=== PATIENT | male | born 1960 | race Caucasian/White ===

== ENCOUNTER 2018-04-18 11:44 | Emergency (ER) | payer BC ==
[2018-04-18 12:29] LABS: #Lymphocytes 1.6 thou/uL (1.20-3.40); #Monocytes 0.5 thou/uL (0.11-0.59); #Neutrophils 2.6 thou/uL (1.40-6.50); %Basophils 0.1 % (0.0-1.0); %Eosinophils 0.7 % (0.0-10.0); %Lymphocytes 34.1 % (21.0-51.0); %Monocytes 10.6 % (0.0-10.0); %Neutrophils 54.4 % (42.0-75.0); Hemoglobin 14.2 g/dL (14.0-18.0); Mean Corpuscular HGB CONC 34.8 g/dL (32.0-36.0); Mean Corpuscular Hemoglobin 36.6 pg (27.0-31.0); Mean Platelet Volume 7.1 fL (7.4-10.4); Platelet Count 103 thou/uL (130-400); RBC Distribution Width 11.4 % (11.5-14.5); Red Blood Cell (RBC) Count 3.88 mill/uL (4.70-6.10); White Blood Cell (WBC) Count 4.8 thou/uL (4.8-10.8)
[2018-04-18 12:36] LABS: ALT (SGPT) 34 U/L (8-55); AST (SGOT) 66 U/L (5-34); Albumin 4.3 g/dL (3.5-5.0); Alkaline Phosphatase 92 U/L (40-150); Anion Gap 12 mmol/L (10-20); BUN (Urea Nitrogen) 11 mg/dL (8.4-25.7); Bilirubin, Total 1.2 mg/dL (0.2-1.2); Calc. Creatinine Clearance 0 mL/min (70-130); Calcium 9.5 mg/dL (7.8-10.44); Carbon Dioxide 25 mmol/L (22-29); Chloride 101 mmol/L (98-107); Estimated GFR-MDRD Greater than 90; Globulin 3.1 g/dL (2.4-3.5); Glucose 97 mg/dL (70-105); Potassium 4.4 mmol/L (3.5-5.1); Protein, Total 7.4 g/dL (6.0-8.3); Sodium 134 mmol/L (136-145)
[2018-04-18 14:51] LABS: CKMB 2.1 ng/mL (0-6.6); Troponin I Less than 0.010 ng/mL (< 0.028)
== END 2018-04-18 17:06 | disposition home or self-care (01) ==
LOC: ERS 11:44
DX: R55 Syncope and collapse (principal); F50.89 Other specified eating disorder; I10 Essential (primary) hypertension; E78.5 Hyperlipidemia, unspecified; M10.9 Gout, unspecified; F41.9 Anxiety disorder, unspecified; F32.9 Major depressive disorder, single episode, unspecified; F17.220 Nicotine dependence, chewing tobacco, uncomplicated
CPT/HCPCS: 36415; 36416; 80053; 82553; 84484; 85025; 93005; 96360

== ENCOUNTER 2019-06-15 10:57 | Outpatient (CLI) | payer BC ==
[2019-06-15] MEDS ORDERED: Iopamidol 370 76% 100 ML VIAL ONE (11:47)
[2019-06-15] MEDS ORDERED: Iopamidol 370 76% 50 ML VIAL FS ONE (11:47)
--- NOTE | 2019-06-15 13:43 | CT ---
CT ABDOMEN WITH ORAL AND IV CONTRAST: HISTORY: Elevated liver enzymes COMPARISON: 04/09/2008 FINDINGS: There are mild dependent changes in the lung bases. The liver demonstrates decreased attenuation comp ared to the spleen consistent with fatty infiltration. No focal mass or abnormal biliary ductal dilatation is seen. The patient is post cholecystectomy. The spleen, pancreas, adrenal glands and kid neys appear normal. No free air, free fluid or lymphadenopathy seen in the abdomen. There are vascular calcifications wit hout evidence of aneurysmal dilatation of the abdominal aorta. The small bowel loops aren't abnormally dilated. Degenerative changes are present in the spine. IMPRESSION: Hepatic steatosis.
== END 2019-06-15 10:58 | disposition home or self-care (01) ==
LOC: CT 10:57
PROVIDERS: ATTEND Family Medicine
DX: R74.8 Abnormal levels of other serum enzymes (principal); K76.0 Fatty (change of) liver, not elsewhere classified
CPT/HCPCS: 36415; 74160; 80074; 82607; 82746; 85610; 85730; Q9967

== ENCOUNTER 2021-04-23 10:00 | Inpatient (IN) | payer BC ==
[2021-05-04] MEDS ORDERED: Fentanyl 250 MCG/5 ML VIAL ONE (06:07)
[2021-05-04] MEDS ORDERED: Bupivacaine 0.25% HCL 30 ML VIAL ONE (06:22)
[2021-05-04] MEDS ORDERED: Sodium Chloride 0.9% 0 ML ONE (06:22)
[2021-05-04] MEDS ORDERED: Lidocaine 1% w/Epinephrine 1:100K 20 ML VIAL ONE (06:22)
[2021-05-04] MEDS ORDERED: Midazolam HCl 2 mg/2 ml Vial ONE (06:37)
[2021-05-04] MEDS ORDERED: Fentanyl 100 MCG/2 ML VIAL ONE (06:37)
[2021-05-04] MEDS ORDERED: cefOXitin Sodium/Dextrose 2 GM/50 ML BAG ONE (06:50)
[2021-05-04] MEDS ORDERED: Dexamethasone 20 MG/5 ML VIAL ONE (07:18)
[2021-05-04] MEDS ORDERED: Ketorolac Tromethamine 30 MG/ML VIAL ONE (07:18)
[2021-05-04] MEDS ORDERED: Ondansetron PF 4 MG/2 ML Vial ONE (07:18)
[2021-05-04] MEDS ORDERED: Lidocaine 1% PF 5 ML VIAL ONE (07:18)
[2021-05-04] MEDS ORDERED: Bupivacaine HCl 0.5%/Epinephrine 1:200,000/PF 30 ml Vial ONE (07:18)
[2021-05-04] MEDS ORDERED: Glycopyrrolate 0.2 MG/ML 5 ML SYRINGE ONE (07:18)
[2021-05-04] MEDS ORDERED: ePHEDrine Sulfate 50 MG/10 ML VIAL ONE (07:18)
[2021-05-04] MEDS ORDERED: PROPOFOL 200 MG/20 ML VIAL ONE (07:18)
[2021-05-04] MEDS ORDERED: Rocuronium Bromide 10 MG/ML (10ML VIAL) ONE (07:18)
[2021-05-04] MEDS ORDERED: Promethazine HCl 25 MG/ML VIAL IM PRN ×2 (08:56→12:36)
[2021-05-04] MEDS ORDERED: Ondansetron HCl/PF 4 MG/2 ML Vial IVP PRN (08:56)
[2021-05-04] MEDS ORDERED: Promethazine HCl 25 MG/ML VIAL SLOW IVP PRN (08:56)
[2021-05-04] MEDS ORDERED: Rocuronium Bromide 50 MG/5 ML VIAL ONE (09:07)
[2021-05-04] MEDS ORDERED: ceFOXitin 1 GM VIAL ONE (09:44)
[2021-05-04] MEDS ORDERED: Morphine 2 MG/ML VIAL SLOW IVP PRN (12:36)
[2021-05-04] MEDS ORDERED: hydrALAZINE 20 MG/ML VIAL SLOW IVP PRN (12:36)
[2021-05-04] MEDS ORDERED: Ondansetron PF 4 MG/2 ML Vial IVP PRN (12:36)
[2021-05-04] MEDS ORDERED: Zolpidem Tartrate 5 MG TAB PO PRN (13:18)
[2021-05-04] MEDS: D5 1/2 NS w/20 mEq KCL 1,000 ML IV SCH (13:46)
[2021-05-04 15:35] VITALS: BMI 23.6
[2021-05-04] MEDS: Ketorolac Tromethamine 30 MG/ML VIAL IVP SCH (17:23)
[2021-05-04] MEDS: Famotidine/PF 20 mg/2ml Vial SLOW IVP SCH (20:38)
[2021-05-05] MEDS: Ketorolac Tromethamine 30 MG/ML VIAL IVP SCH ×3 (00:38→11:47)
[2021-05-05] MEDS: D5 1/2 NS w/20 mEq KCL 1,000 ML IV SCH (03:30)
[2021-05-05 06:30] LABS: Anion Gap 11 mmol/L (10-20); BUN (Urea Nitrogen) 8 mg/dL (8.4-25.7); Calc. Creatinine Clearance 101 mL/min (70-130); Calcium 8.5 mg/dL (7.8-10.44); Carbon Dioxide 26 mmol/L (23-31); Chloride 104 mmol/L (98-107); Glucose 112 mg/dL (80-115); Potassium 4.1 mmol/L (3.5-5.1); Sodium 137 mmol/L (136-145)
[2021-05-05 06:38] LABS: #Lymphocytes 1.5 thou/uL (1.20-3.40); #Monocytes 0.9 thou/uL (0.11-0.59); #Neutrophils 5.7 thou/uL (1.40-6.50); %Basophils 0.1 % (0.0-1.0); %Eosinophils 0.2 % (0.0-10.0); %Monocytes 11.5 % (0.0-10.0); %Neutrophils 70.3 % (42.0-75.0); Hemoglobin 11.3 g/dL (14.0-18.0); Mean Platelet Volume 9.2 fL (7.4-10.4); Platelet Count 95 thou/uL (130-400); Platelet Morphology Comment Appears Decreased; RBC Distribution Width 13.1 % (11.5-14.5); Red Blood Cell (RBC) Count 3.44 mill/uL (4.70-6.10)
[2021-05-05] MEDS ORDERED: Enoxaparin Sodium 40 MG/0.4 ML SYRINGE SC SCH (09:00)
[2021-05-05] MEDS: Terazosin HCl 5 MG CAP PO SCH ×2 (09:39→11:46)
[2021-05-05] MEDS: Famotidine/PF 20 mg/2ml Vial SLOW IVP SCH (09:39)
[2021-05-05 11:28] VITALS: BP 124/68; TEMP 97.8
[2021-05-05] MEDS ORDERED: HYDROcodone/Acetaminophen 7.5/325 mg Tablet PO PRN (12:37)
[2021-05-05] MEDS ORDERED: Polyethylene Glycol 3350 17 GM Packet PO SCH (21:00)
== END 2021-05-05 16:26 | disposition home or self-care (01) | DRG 331 ==
LOC: EDSTATUS 04-28 10:00 → SURG A 05-04 05:58 → SURG B 05-04 13:36
PROVIDERS: ADMIT Surgery; ATTEND Surgery
PROC: 0DTF4ZZ Resection of Right Large Intestine, Percutaneous Endoscopic Approach (ICD-10-PCS; principal; 2021-05-04)
PROC: 0DNW4ZZ Release Peritoneum, Percutaneous Endoscopic Approach (ICD-10-PCS; 2021-05-04)
PROC: 8E0W4CZ Robotic Assisted Procedure of Trunk Region, Percutaneous Endoscopic Approach (ICD-10-PCS; 2021-05-04)
DX: K57.32 Diverticulitis of large intestine without perforation or abscess without bleeding (principal); K66.0 Peritoneal adhesions (postprocedural) (postinfection); Z90.49 Acquired absence of other specified parts of digestive tract
CPT/HCPCS: 36415; 80048; 85025; 88307; J0694; J1100; J1650; J1885; J2250; J2405; J2704; J3010; J3480; S0020; S0028